=== PATIENT | male | born 1940 | race Caucasian/White ===

== ENCOUNTER 2020-01-13 11:58 | Inpatient (IN) ==
[2020-01-13] MEDS ORDERED: Aspirin 81 MG TAB.CHEW PO ONE (12:06)
[2020-01-13 12:39] LABS: Basophils % 0.3 %; Eosinophils # 0.1 K/mcL (0.0-0.6); Eosinophils % 1.4 %; Hematocrit 38.5 % (37.5-50.1); Hemoglobin 13.3 g/dL (12.9-16.9); Immature Granulocytes % 0.5 % (0-4); Lymphocytes # 2.3 K/mcL (0.6-4.6); Lymphocytes % 29.3 %; Mean Corpuscular HGB Conc 34.5 g/dL (31.6-35.5); Mean Corpuscular Hemoglobin 31.5 pg (28.0-33.3); Mean Corpuscular Volume 91.2 fL (83.0-100.0); Mean Platelet Volume 10.5 fL (9.4-12.4); Monocytes # 0.7 K/mcL (0.0-1.3); Monocytes % 8.8 %; Neutrophils # 4.8 K/mcL (1.6-8.9); Platelet Count 110 K/mcL (140-400); Red Blood Count 4.22 M/mcL (4.19-5.50); Red Cell Distribution Width 13.1 % (11.5-14.5); Segmented Neutrophils % 59.7 %
[2020-01-13 12:40] LABS: Prothrombin Time 11.8 Seconds (9.4-12.1)
[2020-01-13] MEDS ORDERED: Acyclovir 750 MG in D5% in Water 250 ML IVPB ONE (12:50)
[2020-01-13 12:55] LABS: BUN/Creatinine Ratio 18 (6-26); Blood Urea Nitrogen 17 mg/dL (8-23); Calcium 9.2 mg/dL (8.6-10.3); Carbon Dioxide 26 mEq/L (23-29); Chloride 107 mEq/L (98-107); Glucose 129 mg/dL (70-105); Osmolality,Calculated 291 (280-300); Potassium 3.7 mEq/L (3.5-5.1); Sodium 139 mEq/L (136-145); eGFR For African Americans > 60 (> 60); eGFR For Non-African Americans > 60 (> 60)
[2020-01-13 12:56] LABS: Troponin I < 0.03 ng/mL (< 0.04)
[2020-01-13] MEDS ORDERED: Naloxone 0.4 MG/ML INJ IVP PRN (15:29)
[2020-01-13] MEDS ORDERED: Dextrose Gel 15 GM/37.5 ML TUBE PO PRN ×2 (15:30)
[2020-01-13] MEDS ORDERED: *HR* Dextrose 50 % in Water (Syg) 50 ML SYRINGE IVP PRN (15:30)
[2020-01-13] MEDS ORDERED: D5% in Water 1,000 ML IVC PRN (15:30)
[2020-01-13] MEDS: *HR* Heparin 5,000 UNIT/ML VIAL SQ SCH (18:02)
[2020-01-13] MEDS: Insulin LISPRO 300 UNITS/3 ML VIAL SQ SCH (18:02)
[2020-01-13] MEDS: Acetaminophen 325 MG TABLET PO PRN (21:05)
[2020-01-14 01:18] LABS: Hemoglobin 12.9 g/dL (12.9-16.9); White Blood Count 7.7 K/mcL (4.3-11.1)
[2020-01-14 01:20] LABS: Hematocrit 37.9 % (37.5-50.1); Immature Platelets 2.8 % (1.1-6.1); Mean Corpuscular Hemoglobin 30.7 pg (28.0-33.3); Mean Corpuscular Volume 90.2 fL (83.0-100.0); Mean Platelet Volume 10.6 fL (9.4-12.4); Red Blood Count 4.2 M/mcL (4.19-5.50)
[2020-01-14 01:25] LABS: BUN/Creatinine Ratio 17 (6-26); Blood Urea Nitrogen 17 mg/dL (8-23); Calcium 9.1 mg/dL (8.6-10.3); Carbon Dioxide 27 mEq/L (23-29); Chloride 105 mEq/L (98-107); Glucose 234 mg/dL (70-105); Osmolality,Calculated 293 (280-300); Potassium 3.8 mEq/L (3.5-5.1); Sodium 137 mEq/L (136-145); eGFR For African Americans > 60 (> 60); eGFR For Non-African Americans > 60 (> 60)
[2020-01-14] MEDS: Acyclovir 750 MG in D5% in Water 250 ML IVPB SCH ×2 (02:18→13:33)
[2020-01-14] MEDS: *HR* Heparin 5,000 UNIT/ML VIAL SQ SCH ×2 (05:00→17:12)
[2020-01-14] MEDS: Acetaminophen 325 MG TABLET PO PRN (09:27)
[2020-01-14] MEDS: Insulin LISPRO 300 UNITS/3 ML VIAL SQ SCH ×3 (09:30→17:09)
[2020-01-14] MEDS ORDERED: clonazePAM 1 MG TABLET PO PRN (13:41)
[2020-01-14] MEDS ORDERED: Perflutren Lipid Microsphere 1.3 ML in 0.9 % Sodium Chloride 8.7 ML IVP ONE (15:01)
[2020-01-14] MEDS ORDERED: Mirtazapine 15 MG TABLET PO SCH (21:00)
[2020-01-15] MEDS: Acyclovir 750 MG in D5% in Water 250 ML IVPB SCH (02:41)
[2020-01-15 04:51] LABS: Red Cell Distribution Width 12.8 % (11.5-14.5)
[2020-01-15 04:52] LABS: Hematocrit 37.7 % (37.5-50.1); Hemoglobin 12.9 g/dL (12.9-16.9); Immature Platelets 3.2 % (1.1-6.1); Mean Corpuscular HGB Conc 34.2 g/dL (31.6-35.5); Mean Corpuscular Hemoglobin 30.6 pg (28.0-33.3); Mean Corpuscular Volume 89.5 fL (83.0-100.0); Mean Platelet Volume 10.7 fL (9.4-12.4); Red Blood Count 4.21 M/mcL (4.19-5.50); White Blood Count 8.6 K/mcL (4.3-11.1)
[2020-01-15 05:18] LABS: BUN/Creatinine Ratio 21 (6-26); Blood Urea Nitrogen 22 mg/dL (8-23); Calcium 8.9 mg/dL (8.6-10.3); Carbon Dioxide 23 mEq/L (23-29); Chloride 102 mEq/L (98-107); Glucose 292 mg/dL (70-105); Osmolality,Calculated 290 (280-300); Sodium 133 mEq/L (136-145); eGFR For African Americans > 60 (> 60); eGFR For Non-African Americans > 60 (> 60)
[2020-01-15] MEDS: *HR* Heparin 5,000 UNIT/ML VIAL SQ SCH (05:40)
[2020-01-15] MEDS: Insulin LISPRO 300 UNITS/3 ML VIAL SQ SCH (07:43)
[2020-01-15] MEDS: Acetaminophen 325 MG TABLET PO PRN (07:53)
[2020-01-15] MEDS ORDERED: amLODIPine 5 MG TABLET PO SCH (09:00)
[2020-01-15] MEDS ORDERED: lisinopriL 10 MG TABLET PO SCH (09:00)
[2020-01-15 11:46] VITALS: BP 159/67
== END 2020-01-15 13:44 | disposition home or self-care (01) | DRG 313 ==
LOC: EMEROOARM 11:58 → 3BNU 11:58
PROVIDERS: ADMIT Family Medicine; ATTEND Family Medicine

== ENCOUNTER 2021-01-01 07:38 | Observation (INO) ==
[2021-01-01 08:24] LABS: Basophils % 0.2 %; Eosinophils % 0.1 %; Hematocrit 39.9 % (37.5-50.1); Hemoglobin 13.7 g/dL (12.9-16.9); Immature Granulocytes % 0.4 % (0-4); Lymphocytes # 0.7 K/mcL (0.6-4.6); Lymphocytes % 4.7 %; Mean Corpuscular HGB Conc 34.3 g/dL (31.6-35.5); Mean Corpuscular Hemoglobin 31.4 pg (28.0-33.3); Mean Corpuscular Volume 91.3 fL (83.0-100.0); Mean Platelet Volume 10.2 fL (9.4-12.4); Monocytes # 1.2 K/mcL (0.0-1.3); Monocytes % 8.1 %; Neutrophils # 12.4 K/mcL (1.6-8.9); Platelet Count 113 K/mcL (140-400); Red Blood Count 4.37 M/mcL (4.19-5.50); Red Cell Distribution Width 12.8 % (11.5-14.5); Segmented Neutrophils % 86.5 %; White Blood Count 14.3 K/mcL (4.3-11.1)
[2021-01-01 08:46] LABS: Alanine Aminotransferase 35 Units/L (7-52); Albumin 4.3 g/dL (3.5-5.7); Albumin/Globulin Ratio 1.5 (1.1-2.2); Alkaline Phosphatase 73 Units/L (34-104); Aspartate Amino Transferase 35 Units/L (13-39); BUN/Creatinine Ratio 19 (6-26); Bilirubin,Total 0.8 mg/dL (0.3-1.0); Blood Urea Nitrogen 22 mg/dL (8-23); Calcium 9.5 mg/dL (8.6-10.3); Carbon Dioxide 24 mEq/L (23-29); Chloride 106 mEq/L (98-107); Globulin 2.8 g/dL (2.4-3.5); Glucose 134 mg/dL (70-105); Osmolality,Calculated 295 (280-300); Potassium 3.6 mEq/L (3.5-5.1); Sodium 140 mEq/L (136-145); Total Protein 7.1 g/dL (6.4-8.9); Troponin I < 0.03 ng/mL (< 0.04); eGFR For African Americans > 60 (> 60); eGFR For Non-African Americans > 60 (> 60)
[2021-01-01] MEDS ORDERED: Azithromycin 250 MG TABLET PO ONE (08:56)
[2021-01-01] MEDS ORDERED: cefTRIAXone 1,000 MG in Water for inj. (sterile) 10 ML IVP ONE (08:56)
[2021-01-01 09:20] LABS: Magnesium 1.5 mg/dL (1.6-2.6); Phosphorous 2.1 mg/dL (2.7-4.5)
[2021-01-01] MEDS ORDERED: Magnesium Oxide 400 MG TABLET PO STA (09:21)
[2021-01-01 09:22] LABS: INR 1.2; Prothrombin Time 13.4 Seconds (9.4-12.1)
[2021-01-01 09:24] LABS: Activated Partial Thrombo Time 30.4 Seconds (26.0-36.0)
[2021-01-01 09:30] LABS: Bilirubin,Urine Negative (Negative); Blood,Urine Moderate (Negative); Clarity,Urine Clear (Clear); Color,Urine Light-Yellow (Yellow); Glucose,Urine (UA) 100 mg/dL (Normal); Hyaline Casts,Urine Few per lpf (None Seen); Ketones,Urine Negative (Negative); Leukocyte Esterase,Urine Negative (Negative); Mucus,Urine Few per lpf (None-Few); Nitrite,Urine Negative (Negative); Protein,Urine 100 mg/dL (Neg-Trace); Specific Gravity,Urine 1.018 (1.010-1.025); Urobilinogen,Urine Normal (Normal); WBC,Urine 0-3 per hpf (0-3)
[2021-01-01 10:14] LABS: Adenovirus Not Detected (Not Detect); Coronavirus 229E Not Detected (Not Detect); Coronavirus HKU1 Not Detected (Not Detect); Coronavirus NL63 DETECTED (Not Detect); Coronavirus OC43 Not Detected (Not Detect); Human Metapneumovirus Not Detected (Not Detect); Human Rhinovirus/Enterovirus Not Detected (Not Detect); Influenza A Subtype 2009 H1 Not Detected (Not Detect); SARS-CoV-2 Not Detected (Not Detect)
[2021-01-01 10:15] LABS: Bordetella Pertussis Not Detected (Not Detect); Chlamydophila pneumoniae Not Detected (Not Detect); Influenza B Not Detected (Not Detect); Mycoplasma pneumoniae Not Detected (Not Detect); Parainfluenza Virus 1 Not Detected (Not Detect); Parainfluenza Virus 2 Not Detected (Not Detect); Parainfluenza Virus 3 Not Detected (Not Detect); Parainfluenza Virus 4 Not Detected (Not Detect); Respiratory Syncytial Virus Not Detected (Not Detect)
[2021-01-01] MEDS: 0.9 % Sodium Chloride 1,000 ML IVC SCH ×2 (10:23→11:15)
[2021-01-01] MEDS ORDERED: *HR* HYDROcodone/Acet 5/325 mg TABLET PO PRN (11:13)
[2021-01-01] MEDS ORDERED: Acetaminophen 325 MG TABLET PO PRN (11:13)
[2021-01-01] MEDS ORDERED: Melatonin 3 MG TABLET PO PRN (11:13)
[2021-01-01] MEDS ORDERED: Naloxone 0.4 MG/ML INJ IVP PRN (11:13)
[2021-01-01] MEDS ORDERED: Ondansetron 4 MG/2 ML VIAL IVP PRN (11:13)
[2021-01-01] MEDS ORDERED: Chloraseptic Spray 177 ML BOTTLE MM PRN (11:16)
[2021-01-01] MEDS ORDERED: Ipratropium/Albuterol Neb 3 ML IH PRN (11:17)
[2021-01-01] MEDS: Ringers Solution, Lactated 1,000 ML IVC SCH (13:05)
[2021-01-01 17:22] LABS: Bilirubin,Urine Negative (Negative); Blood,Urine Small (Negative); Clarity,Urine Clear (Clear); Color,Urine Light-Yellow (Yellow); Glucose,Urine (UA) 200 mg/dL (Normal); Ketones,Urine Negative (Negative); Leukocyte Esterase,Urine Negative (Negative); Mucus,Urine Few per lpf (None-Few); Nitrite,Urine Negative (Negative); Protein,Urine 50 mg/dL (Neg-Trace); Specific Gravity,Urine 1.011 (1.010-1.025); Urobilinogen,Urine Normal (Normal); WBC,Urine 0-3 per hpf (0-3)
[2021-01-01] MEDS ORDERED: Mirtazapine 15 MG TABLET PO SCH (21:15)
[2021-01-01] MEDS ORDERED: clonazePAM 1 MG TABLET PO PRN (21:15)
[2021-01-02 01:25] LABS: Basophils % 0.2 %
[2021-01-02 01:26] LABS: Eosinophils % 0.2 %; Hematocrit 34.9 % (37.5-50.1); Hemoglobin 11.8 g/dL (12.9-16.9); Immature Granulocytes % 0.4 % (0-4); Immature Platelets 2.3 % (1.1-6.1); Lymphocytes # 1.6 K/mcL (0.6-4.6); Lymphocytes % 15.5 %; Mean Corpuscular HGB Conc 33.8 g/dL (31.6-35.5); Mean Corpuscular Volume 91.6 fL (83.0-100.0); Mean Platelet Volume 10.1 fL (9.4-12.4); Monocytes # 1.2 K/mcL (0.0-1.3); Monocytes % 11.2 %; Neutrophils # 7.5 K/mcL (1.6-8.9); Red Blood Count 3.81 M/mcL (4.19-5.50); Segmented Neutrophils % 72.5 %; White Blood Count 10.3 K/mcL (4.3-11.1)
[2021-01-02 01:31] LABS: Platelet Count 92 K/mcL (140-400)
[2021-01-02 01:40] LABS: Alanine Aminotransferase 36 Units/L (7-52); Albumin 3.6 g/dL (3.5-5.7); Albumin/Globulin Ratio 1.5 (1.1-2.2); Alkaline Phosphatase 57 Units/L (34-104); Aspartate Amino Transferase 27 Units/L (13-39); BUN/Creatinine Ratio 16 (6-26); Bilirubin,Total 0.8 mg/dL (0.3-1.0); Blood Urea Nitrogen 16 mg/dL (8-23); Calcium 8.9 mg/dL (8.6-10.3); Carbon Dioxide 27 mEq/L (23-29); Chloride 105 mEq/L (98-107); Glucose 194 mg/dL (70-105); Magnesium 2.2 mg/dL (1.6-2.6); Osmolality,Calculated 290 (280-300); Phosphorous 2.2 mg/dL (2.7-4.5); Potassium 4.1 mEq/L (3.5-5.1); Sodium 137 mEq/L (136-145); eGFR For African Americans > 60 (> 60); eGFR For Non-African Americans > 60 (> 60)
[2021-01-02 01:41] LABS: Globulin 2.4 g/dL (2.4-3.5)
[2021-01-02] MEDS: Ringers Solution, Lactated 1,000 ML IVC SCH (05:18)
[2021-01-02] MEDS ORDERED: amLODIPine 5 MG TABLET PO SCH (09:00)
[2021-01-02] MEDS ORDERED: Loratadine 10 MG TABLET PO SCH (09:00)
[2021-01-02] MEDS ORDERED: lisinopriL 10 MG TABLET PO SCH (09:00)
[2021-01-02] MEDS ORDERED: Multivit/Ca/Min/Fe/FA 1 TAB TABLET PO SCH (09:00)
[2021-01-02 11:11] VITALS: BP 138/64
[2021-01-02] MEDS ORDERED: Insulin DETEMIR 100 UNIT/ML X5UNITS SUBQ SCH (18:00)
[2021-01-05] MEDS ORDERED: Cyanocobalamin (B-12) 1,000 MCG TABLET PO SCH (09:00)
== END 2021-01-02 14:33 | disposition home or self-care (01) ==
LOC: EMEROOARM 07:38 → 3ANU 07:38 → SUATTDRO 11:21 → 3ANU 12:14
PROVIDERS: ADMIT Internal Medicine; ATTEND Internal Medicine